=== PATIENT | male | born 1960 | race African-American/Black ===

== ENCOUNTER 2020-04-26 11:47 | Inpatient (IN) | payer MEDICAID ==
[~2020-04-26] VITALS: Ht 165.1 cm; Wt 89.8 kg
[~2020-04-26 11:47] MED LIST: DIAZ10TA PO; GABA-532 PO; HYDR-4009 PO
[2020-04-26] MEDS ORDERED: ACETAMINOPHEN WITH CODEINE 300/30MG TABLET PO ONE (22:30)
[2020-04-26] MEDS ORDERED: ONDANSETRON HCL 4MG/2ML INJ IV STA (23:16)
[2020-04-26] MEDS ORDERED: MORPHINE SULFATE 4 MG/ML CPJ (NOT FOR IM USE) IV STA (23:16)
[2020-04-26] MEDS ORDERED: PIPERACILLIN/TAZOBACTAM 3.375GM/50ML PREMIX IV SCH (23:30)
[2020-04-26] MEDS ORDERED: VANCOMYCIN 1 G PREMIX 200 ML IV SCH (23:30)
[2020-04-27 00:03] LABS: CHLORIDE 96 mEq/L (98-107)
[2020-04-27 00:06] LABS: HEMATOCRIT. 24.3 % (42.0-52.0); HEMOGLOBIN. 8.1 g/dL (14.0-18.0); MEAN CORPUSCULAR HEMOGLOBIN 29.6 pg (28.0-32.0); MEAN CORPUSCULAR VOLUME 88.8 fL (80.0-94.0); MEAN PLATELET VOLUME 9.1 fl (7.4-10.4); PLATELET 492 x1000/uL (130-400); RED BLOOD CELL COUNT 2.74 mill/uL (4.7-6.1); RED CELL DISTRIBUTION WIDTH 15.8 % (11.6-14.6)
[2020-04-27] MEDS ORDERED: DEXTROSE 50% WATER 50ML SYRINGE IV ONE (00:30)
[2020-04-27] MEDS ORDERED: INSULIN REGULAR (HUMULIN R) 300UNITS/3ML VIAL IV ONE (00:30)
[2020-04-27] MEDS ORDERED: CLINDAMYCIN 600 MG in DEXTROSE 5% WATER 50 ML IV ONE (00:30)
[2020-04-27] MEDS ORDERED: SODIUM POLYSTYRENE SULFONATE 15 G/60 ML BOT PO ONE (00:30)
[2020-04-27 00:58] LABS: PHOSPHORUS 5.1 mg/dL (2.5-4.9)
[2020-04-27] MEDS ORDERED: CLINDAMYCIN 600MG PREMIX 50 ML IV SCH (01:15)
[2020-04-27 02:27] LABS: NUCLEATED RED BLOOD CELLS 3 /100 WBC; PLATELET ESTIMATE NORMAL
[2020-04-27] MEDS ORDERED: SODIUM CHLORIDE 0.9% 1,000 ML IV ONE ×2 (03:15→03:30)
[2020-04-27 03:54] LABS: BG BASE EXCESS -6.5 mmol/L (-2.0-2.0); BG CARBOXYHEMOGLOBIN 1.3 % (0.5-1.5); BG DEOXYHEMOGLOBIN 3.6 % (0.0-5.0); BG FRACTION INSPIRED OXYGEN 100; BG HCO3 ACT 17.7 mmol/L (22.0-26.0); BG OXYGEN SATURATION 96.4 % (92.0-98.5); BG OXYHEMOGLOBIN 95.1 % (94.0-97.0); BG PH 7.389 (7.350-7.450); BG SAMPLE SITE LEFT RADIAL; BG TOTAL HEMOGLOBIN 7.6 g/dL (12.0-18.0); BG VENT MODE MASK - NRB
[2020-04-27] MEDS ORDERED: ONDANSETRON HCL 4MG/2ML INJ IV PRN (09:00)
[2020-04-27] MEDS ORDERED: DEXTROSE 50% WATER 50ML SYRINGE IV PRN (09:00)
[2020-04-27] MEDS: BLOOD SUGAR DIAGNOSTIC STRIP TEST SCH ×4 (09:00→21:50)
[2020-04-27] MEDS ORDERED: PIPERACILLIN/TAZOBACTAM 3.375 G in DEXT 5% WATER 100 ML IV SCH (09:00)
[2020-04-27] MEDS ORDERED: VANCOMYCIN 1 G PREMIX 200 ML IV SCH (11:00)
[2020-04-27] MEDS: PIPERACILLIN/TAZOBACTAM 2.25 G in DEXTROSE 5% WATER 50 ML IV SCH ×2 (12:17→21:42)
[2020-04-27] MEDS: INSULIN LISPRO 100 UNITS/ML SUBCUT SCH ×3 (13:12→21:50)
[2020-04-27 13:20] LABS: MEAN CORPUSCULAR HEMOGLOBIN 29.6 pg (28.0-32.0); MEAN CORPUSCULAR VOLUME 88.8 fL (80.0-94.0); MEAN PLATELET VOLUME 8.5 fl (7.4-10.4); PLATELET 378 x1000/uL (130-400); RED BLOOD CELL COUNT 2.24 mill/uL (4.7-6.1); RED CELL DISTRIBUTION WIDTH 15.9 % (11.6-14.6)
[2020-04-27 13:28] LABS: HEMATOCRIT. 19.9 % (42.0-52.0); HEMOGLOBIN. 6.6 g/dL (14.0-18.0)
[2020-04-27] MEDS ORDERED: TRAMADOL 50MG TABLET PO PRN (13:45)
[2020-04-27 14:23] LABS: NUCLEATED RED BLOOD CELLS 1 /100 WBC; PLATELET ESTIMATE NORMAL
[2020-04-27] MEDS ORDERED: CLINDAMYCIN 600MG PREMIX 50 ML IV NR (16:00)
[2020-04-27 18:29] LABS: CLARITY URINE TURBID (CLEAR); COLOR URINE ORANGE (YELLOW); KETONES URINE NEGATIVE (NEGATIVE); LEUKOCYTE ESTERASE URINE 1+ (NEGATIVE); NITRITE URINE NEGATIVE (NEGATIVE); OCCULT BLOOD URINE 3+ (NEGATIVE); PROTEIN URINE 4+ (NEGATIVE); SPECIFIC GRAVITY URINE 1.013 (1.005-1.030)
[2020-04-27 18:44] LABS: *COCAINE SCREEN URINE PRESUMTIVE POSITIVE (NEGATIVE)
[2020-04-27 18:45] LABS: *AMPHETAMINES SCREEN URINE NEGATIVE (NEGATIVE); *BARBITURATES SCREEN URINE NEGATIVE (NEGATIVE); *BENZODIAZEPINES SCREEN URINE NEGATIVE (NEGATIVE); CANNABINOID URINE SCREEN NEGATIVE (NEGATIVE); METHADONE URINE SCREEN NEGATIVE (NEGATIVE); OPIATES URINE SCREEN NEGATIVE (NEGATIVE); PHENCYCLIDINE URINE SCREEN NEGATIVE (NEGATIVE)
[2020-04-27] MEDS ORDERED: SODIUM POLYSTYRENE SULFONATE 15 G/60 ML BOT PO NR (19:00)
[2020-04-27] MEDS: SODIUM CHLORIDE 0.9% 1,000 ML IV SCH (19:13)
[2020-04-28] MEDS: SODIUM CHLORIDE 0.9% 1,000 ML IV SCH ×2 (05:00→16:40)
[2020-04-28] MEDS: PIPERACILLIN/TAZOBACTAM 2.25 G in DEXTROSE 5% WATER 50 ML IV SCH ×3 (05:38→18:58)
[2020-04-28] MEDS: BLOOD SUGAR DIAGNOSTIC STRIP TEST SCH (07:20)
[2020-04-28] MEDS: INSULIN LISPRO 100 UNITS/ML SUBCUT SCH (07:50)
[2020-04-28 08:28] VITALS: BP 108/59
[2020-04-28 10:01] VITALS: BP 108/59
[2020-04-28 12:14] VITALS: BP 130/63
[2020-04-28] MEDS ORDERED: LEVOFLOXACIN 250MG PREMIX 50 ML IV SCH (14:00)
[2020-04-28 16:18] VITALS: BP 116/62
[2020-04-28 16:53] LABS: HEMATOCRIT 21.7 % (42.0-52.0); HEMOGLOBIN 7.4 g/dL (14.0-18.0)
[2020-04-28 17:34] LABS: FOLIC ACID (FOLATE) SERUM 15.9 ng/mL (>5.38)
[2020-04-28 17:38] LABS: HEPATITIS B SURFACE ANTIGEN NEGATIVE
[2020-04-28 18:06] LABS: HEPATITIS A AB IGM NEGATIVE (NEGATIVE)
[2020-04-28 20:00] VITALS: BP_SYST 133; BP_SYST 139; BP_DIAS 53; BP_DIAS 75
[2020-04-28] MEDS ORDERED: SODIUM POLYSTYRENE SULFONATE 15 G/60 ML BOT PO NR (21:00)
[2020-04-29] VITALS: BP 128/64
[2020-04-29 04:00] VITALS: BP 127/64
[2020-04-29] MEDS: SODIUM CHLORIDE 0.9% 1,000 ML IV SCH ×3 (05:29→21:00)
[2020-04-29] MEDS: PIPERACILLIN/TAZOBACTAM 2.25 G in DEXTROSE 5% WATER 50 ML IV SCH ×2 (05:30→10:41)
[2020-04-29 06:56] LABS: MEAN CORPUSCULAR VOLUME 87.1 fL (80.0-94.0); MEAN PLATELET VOLUME 8.7 fl (7.4-10.4); PLATELET 362 x1000/uL (130-400); RED BLOOD CELL COUNT 2.16 mill/uL (4.7-6.1); RED CELL DISTRIBUTION WIDTH 16.5 % (11.6-14.6)
[2020-04-29 07:50] LABS: HEMATOCRIT. 18.9 % (42.0-52.0); HEMOGLOBIN. 6.3 g/dL (14.0-18.0)
[2020-04-29 08:00] VITALS: BP 93/44
[2020-04-29] MEDS: HYDROCODONE/ACETAMINOPHEN 5/325MG TABLET PO PRN (10:59)
[2020-04-29 12:00] VITALS: BP 103/56
[2020-04-29] MEDS ORDERED: CEFTRIAXONE 2 G PREMIX 50 ML IV SCH (13:00)
[2020-04-29] MEDS: CEFTRIAXONE 2 G in DEXTROSE 5% WATER 50 ML IV SCH (13:15)
[2020-04-29] MEDS ORDERED: CEFTRIAXONE 1,000 MG in DEXTROSE 5% WATER 50 ML IV SCH (14:00)
[2020-04-29 16:00] VITALS: BP 96/58
[2020-04-29 17:25] LABS: PLATELET ESTIMATE NORMAL
[2020-04-29 20:00] VITALS: BP 123/58
[2020-04-29] MEDS ORDERED: VANCOMYCIN 750 MG PREMIX 150 ML IV SCH (21:00)
[2020-04-30] VITALS (10 sets, daily range): BP systolic 100–145; BP diastolic 45–79
[2020-04-30] MEDS ORDERED: HEPARIN 1000 UNITS/ML 10ML ONE ×2 (07:51→12:26)
[2020-04-30] MEDS ORDERED: LIDOCAINE HCL 1% 20ML VIAL (Pyxis) INJ ONE ×2 (07:51→12:25)
[2020-04-30] MEDS: SODIUM CHLORIDE 0.9% 1,000 ML IV SCH ×2 (08:30→17:00)
[2020-04-30] MEDS: CEFTRIAXONE 2 G in DEXTROSE 5% WATER 50 ML IV SCH (13:49)
[2020-04-30] MEDS: ACETAMINOPHEN 325MG TABLET PO PRN (16:57)
[2020-05-01] VITALS (9 sets, daily range): BP systolic 109–148; BP diastolic 49–84
[2020-05-01] MEDS: SODIUM CHLORIDE 0.9% 1,000 ML IV SCH ×3 (00:12→21:01)
[2020-05-01] MEDS: HYDROCODONE/ACETAMINOPHEN 5/325MG TABLET PO PRN ×2 (00:23→10:31)
[2020-05-01 00:34] LABS: INR 1.1; PARTIAL THROMBOPLASTIN TIME 23.9 sec (23.4-31.0)
[2020-05-01 00:54] LABS: FIBRINOGEN > 900 mg/dL (200-400)
[2020-05-01] MEDS: ACETAMINOPHEN 325MG TABLET PO PRN (02:09)
[2020-05-01] MEDS ORDERED: SODIUM BICARBONATE 4% (2.4MEQ) 5ML VIAL IV ONE (09:01)
[2020-05-01] MEDS ORDERED: LIDOCAINE HCL 1% 20ML VIAL (Pyxis) INJ ONE (09:02)
[2020-05-01] MEDS ORDERED: HEPARIN 1000 UNITS/ML 10ML ONE (09:02)
[2020-05-01] MEDS: CEFTRIAXONE 2 G in DEXTROSE 5% WATER 50 ML IV SCH (13:08)
[2020-05-01] MEDS ORDERED: LIDOCAINE HCL/EPINEPHRINE 1%-EPI 1:100,000 20 ML VIAL INFIL NR (16:00)
[2020-05-01 16:23] LABS: MEAN CORPUSCULAR HEMOGLOBIN 29.4 pg (28.0-32.0); MEAN CORPUSCULAR VOLUME 87.9 fL (80.0-94.0); MEAN PLATELET VOLUME 8.1 fl (7.4-10.4); PLATELET 349 x1000/uL (130-400); RED BLOOD CELL COUNT 2.39 mill/uL (4.7-6.1); RED CELL DISTRIBUTION WIDTH 16.4 % (11.6-14.6)
[2020-05-01 16:52] LABS: PLATELET ESTIMATE NORMAL
[2020-05-01] MEDS ORDERED: VANCOMYCIN 1 G PREMIX 200 ML IV SCH ×2 (17:00→21:00)
[2020-05-01] MEDS: SODIUM HYPOCHLORITE 0.125% 473ML SOLUTION TOP SCH (17:47)
[2020-05-02] VITALS (7 sets, daily range): BP systolic 101–141; BP diastolic 46–78
[2020-05-02 06:46] LABS: HEMATOCRIT. 25.2 % (42.0-52.0); HEMOGLOBIN. 8.7 g/dL (14.0-18.0); MEAN CORPUSCULAR HEMOGLOBIN 29.9 pg (28.0-32.0); MEAN CORPUSCULAR VOLUME 87.2 fL (80.0-94.0); MEAN PLATELET VOLUME 8.5 fl (7.4-10.4); PLATELET 328 x1000/uL (130-400); RED BLOOD CELL COUNT 2.89 mill/uL (4.7-6.1)
[2020-05-02] MEDS: SODIUM CHLORIDE 0.9% 1,000 ML IV SCH (09:08)
[2020-05-02] MEDS: SODIUM HYPOCHLORITE 0.125% 473ML SOLUTION TOP SCH (09:09)
[2020-05-02 09:33] LABS: HEMATOCRIT 25.1 % (42.0-52.0); HEMOGLOBIN 8.6 g/dL (14.0-18.0)
[2020-05-02] MEDS: CEFTRIAXONE 2 G in DEXTROSE 5% WATER 50 ML IV SCH (12:47)
[2020-05-02] MEDS: HYDROCODONE/ACETAMINOPHEN 5/325MG TABLET PO PRN (13:15)
[2020-05-02 20:48] LABS: PLATELET ESTIMATE NORMAL
[2020-05-03] VITALS: BP 152/77
[2020-05-03 04:00] VITALS: BP 109/58
[2020-05-03 07:18] LABS: HEMATOCRIT. 24.5 % (42.0-52.0); MEAN CORPUSCULAR HEMOGLOBIN 29.3 pg (28.0-32.0); MEAN CORPUSCULAR VOLUME 89.2 fL (80.0-94.0); MEAN PLATELET VOLUME 8.4 fl (7.4-10.4); PLATELET 285 x1000/uL (130-400); RED BLOOD CELL COUNT 2.75 mill/uL (4.7-6.1)
[2020-05-03 07:55] LABS: PHOSPHORUS 8.9 mg/dL (2.5-4.9)
[2020-05-03 08:00] VITALS: BP 118/54
[2020-05-03] MEDS: SODIUM HYPOCHLORITE 0.125% 473ML SOLUTION TOP SCH (09:00)
[2020-05-03 11:58] VITALS: BP 136/79
[2020-05-03] MEDS: CALCIUM ACETATE 667MG CAPSULE PO SCH ×2 (12:25→17:50)
[2020-05-03] MEDS ORDERED: HYDROCODONE/ACETAMINOPHEN 5/325MG TABLET PO PRN (13:15)
[2020-05-03 16:00] VITALS: BP 124/70
[2020-05-03 20:50] VITALS: BP 124/59
[2020-05-03 21:32] LABS: PLATELET ESTIMATE NORMAL
[2020-05-03] MEDS: HYDROCODONE/ACETAMINOPHEN 5/325MG TABLET PO PRN (21:34)
[2020-05-04 00:46] VITALS: BP 117/57
[2020-05-04 04:00] VITALS: BP 124/64
[2020-05-04] MEDS: HYDROCODONE/ACETAMINOPHEN 5/325MG TABLET PO PRN ×3 (06:43→23:54)
[2020-05-04 08:00] VITALS: BP 118/68
[2020-05-04] MEDS: CALCIUM ACETATE 667MG CAPSULE PO SCH ×2 (08:30→19:09)
[2020-05-04 09:08] LABS: ANTI-NUCLEAR ANTIBODIES DIRECT Positive (Negative)
[2020-05-04 12:22] VITALS: BP 144/68
[2020-05-04] MEDS ORDERED: VANCOMYCIN 750 MG PREMIX 150 ML IV NR (14:00)
[2020-05-04 16:15] VITALS: BP 118/68
[2020-05-04 18:16] LABS: BASOPHILS % 0.6 % (0.0-2.0); EOSINOPHILS % 1.2 % (0.0-5.0); HEMATOCRIT. 21.3 % (42.0-52.0); LYMPHOCYTES % 7.6 % (20.0-50.0); MEAN CORPUSCULAR HEMOGLOBIN 29.3 pg (28.0-32.0); MEAN CORPUSCULAR VOLUME 89.2 fL (80.0-94.0); MEAN PLATELET VOLUME 8.2 fl (7.4-10.4); MONOCYTES % 8.6 % (2.0-8.0); PLATELET 285 x1000/uL (130-400); RED BLOOD CELL COUNT 2.39 mill/uL (4.7-6.1); RED CELL DISTRIBUTION WIDTH 16.3 % (11.6-14.6)
[2020-05-04] MEDS: SODIUM HYPOCHLORITE 0.125% 473ML SOLUTION TOP SCH (18:17)
[2020-05-04] MEDS: CEFTRIAXONE 2 G in DEXTROSE 5% WATER 50 ML IV SCH (19:09)
[2020-05-04 20:00] VITALS: BP 126/71
[2020-05-05] VITALS (8 sets, daily range): BP systolic 104–142; BP diastolic 62–85
[2020-05-05 09:32] LABS: BASOPHILS % 0.7 % (0.0-2.0); EOSINOPHILS % 1.2 % (0.0-5.0); HEMATOCRIT. 24.8 % (42.0-52.0); HEMOGLOBIN. 8.3 g/dL (14.0-18.0); LYMPHOCYTES % 7.5 % (20.0-50.0); MEAN CORPUSCULAR HEMOGLOBIN 29.9 pg (28.0-32.0); MEAN CORPUSCULAR VOLUME 89.1 fL (80.0-94.0); MEAN PLATELET VOLUME 8.1 fl (7.4-10.4); MONOCYTES % 9.4 % (2.0-8.0); NEUTROPHILS % 81.2 % (40.0-76.0); PLATELET 284 x1000/uL (130-400); RED BLOOD CELL COUNT 2.78 mill/uL (4.7-6.1); RED CELL DISTRIBUTION WIDTH 15.8 % (11.6-14.6)
[2020-05-05] MEDS: SODIUM HYPOCHLORITE 0.125% 473ML SOLUTION TOP SCH (10:19)
[2020-05-05] MEDS: CEFTRIAXONE 2 G in DEXTROSE 5% WATER 50 ML IV SCH ×2 (14:05→14:09)
[2020-05-05] MEDS: CALCIUM ACETATE 667MG CAPSULE PO SCH ×2 (14:08→18:00)
[2020-05-05] MEDS: HYDROCODONE/ACETAMINOPHEN 5/325MG TABLET PO PRN (14:16)
[2020-05-05] MEDS: ACETAMINOPHEN 325MG TABLET PO PRN ×2 (14:18→22:00)
[2020-05-06] VITALS: BP 103/69
[2020-05-06] MEDS: HYDROCODONE/ACETAMINOPHEN 5/325MG TABLET PO PRN (01:10)
[2020-05-06 04:00] VITALS: BP 137/89
[2020-05-06 08:00] VITALS: BP 117/74
[2020-05-06] MEDS: SODIUM HYPOCHLORITE 0.125% 473ML SOLUTION TOP SCH (09:00)
[2020-05-06 10:30] LABS: BASOPHILS % 0.7 % (0.0-2.0); EOSINOPHILS % 1.4 % (0.0-5.0); HEMATOCRIT. 26.1 % (42.0-52.0); HEMOGLOBIN. 8.6 g/dL (14.0-18.0); LYMPHOCYTES % 11.3 % (20.0-50.0); MEAN CORPUSCULAR HEMOGLOBIN 30.2 pg (28.0-32.0); MEAN CORPUSCULAR VOLUME 91.2 fL (80.0-94.0); MEAN PLATELET VOLUME 8.1 fl (7.4-10.4); NEUTROPHILS % 76.6 % (40.0-76.0); PLATELET 300 x1000/uL (130-400); RED BLOOD CELL COUNT 2.86 mill/uL (4.7-6.1); RED CELL DISTRIBUTION WIDTH 15.6 % (11.6-14.6)
[2020-05-06 12:00] VITALS: BP 132/74
[2020-05-06] MEDS ORDERED: VANCOMYCIN 500 MG PREMIX 100 ML IV SCH (12:00)
[2020-05-06 16:00] VITALS: BP 148/71
[2020-05-06 20:00] VITALS: BP 123/68
[2020-05-06] MEDS ORDERED: CEFTRIAXONE 2 G in DEXTROSE 5% WATER 50 ML IV SCH (20:00)
[2020-05-06] MEDS: ACETAMINOPHEN 325MG TABLET PO PRN (20:48)
[2020-05-06] MEDS: CEFTRIAXONE 2 G in DEXTROSE 5% WATER 50 ML IV SCH (23:20)
[2020-05-07] VITALS (10 sets, daily range): BP systolic 106–137; BP diastolic 52–85
[2020-05-07] MEDS: SODIUM HYPOCHLORITE 0.125% 473ML SOLUTION TOP SCH (09:57)
[2020-05-07] MEDS: CALCIUM ACETATE 667MG CAPSULE PO SCH ×2 (13:34→17:30)
[2020-05-07] MEDS: HYDROCODONE/ACETAMINOPHEN 5/325MG TABLET PO PRN ×2 (14:27→22:48)
[2020-05-07] MEDS: ACETAMINOPHEN 325MG TABLET PO PRN (14:40)
[2020-05-07 17:10] LABS: ANTI-MYELOPEROXIDASE AB < 9.0 U/mL (0.0-9.0); ANTI-PROTEINASE 3 ABS < 3.5 U/mL (0.0-3.5)
[2020-05-07 17:49] LABS: BASOPHILS % 1.1 % (0.0-2.0); EOSINOPHILS % 1.6 % (0.0-5.0); HEMATOCRIT. 22.2 % (42.0-52.0); HEMOGLOBIN. 7.4 g/dL (14.0-18.0); LYMPHOCYTES % 15.8 % (20.0-50.0); MEAN CORPUSCULAR HEMOGLOBIN 30.1 pg (28.0-32.0); MEAN CORPUSCULAR VOLUME 90.1 fL (80.0-94.0); MEAN PLATELET VOLUME 7.9 fl (7.4-10.4); MONOCYTES % 10.1 % (2.0-8.0); NEUTROPHILS % 71.4 % (40.0-76.0); PLATELET 279 x1000/uL (130-400); RED BLOOD CELL COUNT 2.46 mill/uL (4.7-6.1); RED CELL DISTRIBUTION WIDTH 15.7 % (11.6-14.6)
[2020-05-08] MEDS: CEFTRIAXONE 2 G in DEXTROSE 5% WATER 50 ML IV SCH ×2 (00:20→23:31)
[2020-05-08 03:44] VITALS: BP 130/62
[2020-05-08] MEDS: CALCIUM ACETATE 667MG CAPSULE PO SCH ×3 (06:27→18:45)
[2020-05-08 07:22] LABS: BASOPHILS % 0.7 % (0.0-2.0); EOSINOPHILS % 1.3 % (0.0-5.0); HEMATOCRIT. 24.6 % (42.0-52.0); HEMOGLOBIN. 8.3 g/dL (14.0-18.0); LYMPHOCYTES % 15.8 % (20.0-50.0); MEAN CORPUSCULAR HEMOGLOBIN 30.3 pg (28.0-32.0); MEAN CORPUSCULAR VOLUME 89.4 fL (80.0-94.0); MONOCYTES % 12.9 % (2.0-8.0); NEUTROPHILS % 69.3 % (40.0-76.0); PLATELET 260 x1000/uL (130-400); RED BLOOD CELL COUNT 2.75 mill/uL (4.7-6.1); RED CELL DISTRIBUTION WIDTH 15.8 % (11.6-14.6)
[2020-05-08 07:30] LABS: INR 1.2; PROTHROMBIN TIME 12.1 sec (9.6-11.0)
[2020-05-08 08:00] VITALS: BP 121/71
[2020-05-08 08:15] LABS: FIBRINOGEN > 900 mg/dL (200-400)
[2020-05-08] MEDS: HYDROCODONE/ACETAMINOPHEN 5/325MG TABLET PO PRN (11:22)
[2020-05-08 12:00] VITALS: BP 116/72
[2020-05-08 16:00] VITALS: BP 157/76
[2020-05-08] MEDS: SODIUM HYPOCHLORITE 0.125% 473ML SOLUTION TOP SCH (18:47)
[2020-05-08 20:00] VITALS: BP 113/67
[2020-05-08] MEDS: ACETAMINOPHEN 325MG TABLET PO PRN (22:00)
[2020-05-09] VITALS: BP 101/53
[2020-05-09 04:00] VITALS: BP 123/73
[2020-05-09] MEDS: CALCIUM ACETATE 667MG CAPSULE PO SCH ×3 (06:13→17:26)
[2020-05-09 07:22] LABS: EOSINOPHILS % 1.5 % (0.0-5.0); HEMATOCRIT. 26.8 % (42.0-52.0); HEMOGLOBIN. 8.9 g/dL (14.0-18.0); LYMPHOCYTES % 14.9 % (20.0-50.0); MEAN CORPUSCULAR HEMOGLOBIN 30.1 pg (28.0-32.0); MEAN CORPUSCULAR VOLUME 90.5 fL (80.0-94.0); MEAN PLATELET VOLUME 8.3 fl (7.4-10.4); MONOCYTES % 13.5 % (2.0-8.0); NEUTROPHILS % 69.1 % (40.0-76.0); PLATELET 299 x1000/uL (130-400); RED BLOOD CELL COUNT 2.96 mill/uL (4.7-6.1); RED CELL DISTRIBUTION WIDTH 15.8 % (11.6-14.6)
[2020-05-09 08:00] VITALS: BP 125/75
[2020-05-09] MEDS: SODIUM CHLORIDE 0.45% 1,000 ML IV SCH (09:06)
[2020-05-09] MEDS: SODIUM HYPOCHLORITE 0.125% 473ML SOLUTION TOP SCH (09:09)
[2020-05-09 12:00] VITALS: BP 122/71
[2020-05-09 13:11] LABS: ATYPICAL P-ANCA <1:20 titer (Neg:<1:20); CYTOPLASMIC C-ANCA <1:20 titer (Neg:<1:20); PERINUCLEAR P-ANCA <1:20 titer (Neg:<1:20)
[2020-05-09] MEDS: HYDROCODONE/ACETAMINOPHEN 5/325MG TABLET PO PRN (14:58)
[2020-05-09 16:00] VITALS: BP 118/74
[2020-05-09 20:00] VITALS: BP 136/73
[2020-05-09] MEDS ORDERED: LIDOCAINE HCL 1% 20ML VIAL (Pyxis) INJ INFIL NR (21:00)
[2020-05-09] MEDS ORDERED: METHYLPREDNISOLONE ACETATE 40MG/ML VIAL IM NR (21:00)
[2020-05-09] MEDS: CEFTRIAXONE 2 G in DEXTROSE 5% WATER 50 ML IV SCH (23:53)
[2020-05-10] VITALS (7 sets, daily range): BP systolic 110–147; BP diastolic 52–82
[2020-05-10] MEDS: HYDROCODONE/ACETAMINOPHEN 5/325MG TABLET PO PRN ×3 (00:59→19:54)
[2020-05-10] MEDS: SODIUM CHLORIDE 0.45% 1,000 ML IV SCH ×3 (01:00→15:14)
[2020-05-10] MEDS: CALCIUM ACETATE 667MG CAPSULE PO SCH ×3 (05:56→17:52)
[2020-05-10 06:32] LABS: EOSINOPHILS % 1.1 % (0.0-5.0); HEMOGLOBIN. 8.1 g/dL (14.0-18.0); LYMPHOCYTES % 16.4 % (20.0-50.0); MEAN CORPUSCULAR VOLUME 89.2 fL (80.0-94.0); MONOCYTES % 13.3 % (2.0-8.0); NEUTROPHILS % 68.2 % (40.0-76.0); PLATELET 289 x1000/uL (130-400); RED BLOOD CELL COUNT 2.69 mill/uL (4.7-6.1); RED CELL DISTRIBUTION WIDTH 15.4 % (11.6-14.6)
[2020-05-10 06:53] LABS: PHOSPHORUS 4.8 mg/dL (2.5-4.9)
[2020-05-10] MEDS: SODIUM HYPOCHLORITE 0.125% 473ML SOLUTION TOP SCH (12:18)
[2020-05-10 16:04] LABS: CLARITY URINE CLEAR (CLEAR); COLOR URINE YELLOW (YELLOW); KETONES URINE NEGATIVE (NEGATIVE); LEUKOCYTE ESTERASE URINE 2+ (NEGATIVE); NITRITE URINE NEGATIVE (NEGATIVE); OCCULT BLOOD URINE 3+ (NEGATIVE); PROTEIN URINE 2+ (NEGATIVE); SPECIFIC GRAVITY URINE 1.007 (1.005-1.030); UROBILINOGEN URINE 0.2 E.U./dL (0.2-1.0)
[2020-05-10] MEDS: CEFTRIAXONE 2 G in DEXTROSE 5% WATER 50 ML IV SCH (22:11)
[2020-05-11] VITALS: BP 129/67
[2020-05-11] MEDS: ACETAMINOPHEN 325MG TABLET PO PRN (00:28)
[2020-05-11] MEDS: SODIUM CHLORIDE 0.45% 1,000 ML IV SCH ×3 (01:02→22:26)
[2020-05-11 04:00] VITALS: BP 135/84
[2020-05-11] MEDS: CALCIUM ACETATE 667MG CAPSULE PO SCH ×3 (06:23→16:53)
[2020-05-11] MEDS: HYDROCODONE/ACETAMINOPHEN 5/325MG TABLET PO PRN ×3 (06:33→22:47)
[2020-05-11 08:00] VITALS: BP 125/79
[2020-05-11] MEDS: SODIUM HYPOCHLORITE 0.125% 473ML SOLUTION TOP SCH (08:50)
[2020-05-11 09:33] LABS: BASOPHILS % 0.5 % (0.0-2.0); EOSINOPHILS % 0.3 % (0.0-5.0); HEMATOCRIT. 25.1 % (42.0-52.0); HEMOGLOBIN. 8.3 g/dL (14.0-18.0); LYMPHOCYTES % 12.6 % (20.0-50.0); MEAN CORPUSCULAR HEMOGLOBIN 29.7 pg (28.0-32.0); MEAN PLATELET VOLUME 8.4 fl (7.4-10.4); MONOCYTES % 6.6 % (2.0-8.0); PLATELET 326 x1000/uL (130-400); RED BLOOD CELL COUNT 2.79 mill/uL (4.7-6.1); RED CELL DISTRIBUTION WIDTH 15.9 % (11.6-14.6)
[2020-05-11 12:00] VITALS: BP 133/63
[2020-05-11] MEDS ORDERED: DOCUSATE SODIUM 250MG CAPSULE PO PRN (13:30)
[2020-05-11 16:00] VITALS: BP 119/66
[2020-05-11 20:00] VITALS: BP 113/54
[2020-05-11] MEDS: CEFTRIAXONE 2 G in DEXTROSE 5% WATER 50 ML IV SCH (22:26)
[2020-05-12] MEDS: SODIUM CHLORIDE 0.45% 1,000 ML IV SCH ×2 (06:00→19:09)
[2020-05-12] MEDS: CALCIUM ACETATE 667MG CAPSULE PO SCH ×3 (06:00→18:10)
[2020-05-12 06:12] LABS: BASOPHILS % 0.7 % (0.0-2.0); EOSINOPHILS % 0.4 % (0.0-5.0); HEMATOCRIT. 25.3 % (42.0-52.0); HEMOGLOBIN. 8.1 g/dL (14.0-18.0); LYMPHOCYTES % 16.4 % (20.0-50.0); MEAN CORPUSCULAR HEMOGLOBIN 29.2 pg (28.0-32.0); MEAN CORPUSCULAR VOLUME 90.6 fL (80.0-94.0); MEAN PLATELET VOLUME 8.7 fl (7.4-10.4); MONOCYTES % 11.5 % (2.0-8.0); PLATELET 375 x1000/uL (130-400); RED BLOOD CELL COUNT 2.79 mill/uL (4.7-6.1); RED CELL DISTRIBUTION WIDTH 15.4 % (11.6-14.6)
[2020-05-12 07:48] VITALS: BP 136/67
[2020-05-12] MEDS: HYDROCODONE/ACETAMINOPHEN 5/325MG TABLET PO PRN ×2 (08:04→18:12)
[2020-05-12] MEDS: SODIUM HYPOCHLORITE 0.125% 473ML SOLUTION TOP SCH (09:47)
[2020-05-12] MEDS: CELECOXIB 100MG CAPSULE PO SCH ×2 (09:47→18:10)
[2020-05-12 12:00] VITALS: BP 128/70
[2020-05-12] MEDS: DIPHENHYDRAMINE 25MG CAPSULE PO PRN ×2 (15:40→22:22)
[2020-05-12 20:00] VITALS: BP 129/68
[2020-05-12] MEDS: CEFTRIAXONE 2 G in DEXTROSE 5% WATER 50 ML IV SCH (22:16)
[2020-05-12] MEDS: HYDROXYCHLOROQUINE SULFATE 200MG TABLET PO SCH (22:16)
[2020-05-13] VITALS: BP 134/75
[2020-05-13] MEDS: SODIUM CHLORIDE 0.45% 1,000 ML IV SCH ×3 (03:35→22:08)
[2020-05-13 04:00] VITALS: BP 167/89
[2020-05-13] MEDS: CALCIUM ACETATE 667MG CAPSULE PO SCH ×3 (06:05→17:52)
[2020-05-13 08:00] VITALS: BP 124/93
[2020-05-13 08:54] LABS: BASOPHILS % 1.3 % (0.0-2.0); EOSINOPHILS % 1.3 % (0.0-5.0); HEMATOCRIT. 26.1 % (42.0-52.0); HEMOGLOBIN. 8.3 g/dL (14.0-18.0); LYMPHOCYTES % 23.5 % (20.0-50.0); MEAN CORPUSCULAR HEMOGLOBIN 29.2 pg (28.0-32.0); MEAN CORPUSCULAR VOLUME 91.3 fL (80.0-94.0); MEAN PLATELET VOLUME 8.7 fl (7.4-10.4); MONOCYTES % 12.8 % (2.0-8.0); NEUTROPHILS % 61.1 % (40.0-76.0); PLATELET 420 x1000/uL (130-400); RED BLOOD CELL COUNT 2.86 mill/uL (4.7-6.1); RED CELL DISTRIBUTION WIDTH 15.4 % (11.6-14.6)
[2020-05-13] MEDS: DIPHENHYDRAMINE 25MG CAPSULE PO PRN ×2 (09:06→22:22)
[2020-05-13] MEDS: SODIUM HYPOCHLORITE 0.125% 473ML SOLUTION TOP SCH (09:06)
[2020-05-13] MEDS: HYDROXYCHLOROQUINE SULFATE 200MG TABLET PO SCH ×2 (09:06→17:52)
[2020-05-13] MEDS: CELECOXIB 100MG CAPSULE PO SCH ×2 (09:06→17:52)
[2020-05-13] MEDS: HYDROCODONE/ACETAMINOPHEN 5/325MG TABLET PO PRN ×2 (09:07→22:24)
[2020-05-13 09:08] LABS: CHLORIDE 111 mEq/L (98-107)
[2020-05-13 11:52] VITALS: BP 139/68
[2020-05-13 20:00] VITALS: BP 102/67
[2020-05-13] MEDS: CEFTRIAXONE 2 G in DEXTROSE 5% WATER 50 ML IV SCH (22:08)
[2020-05-14] VITALS: BP 141/70
[2020-05-14 04:00] VITALS: BP 149/82
[2020-05-14] MEDS: CALCIUM ACETATE 667MG CAPSULE PO SCH ×3 (06:18→16:48)
[2020-05-14 08:02] VITALS: BP 128/57
[2020-05-14] MEDS: CELECOXIB 100MG CAPSULE PO SCH ×2 (08:17→16:48)
[2020-05-14] MEDS: HYDROXYCHLOROQUINE SULFATE 200MG TABLET PO SCH ×2 (08:17→16:48)
[2020-05-14] MEDS: SODIUM CHLORIDE 0.45% 1,000 ML IV SCH (08:23)
[2020-05-14 09:07] LABS: ANA IFA Negative (.)
[2020-05-14 09:07] LABS: G6PD RBC 2.83 x10E6/uL (4.14-5.80)
[2020-05-14] MEDS: SODIUM HYPOCHLORITE 0.125% 473ML SOLUTION TOP SCH (09:20)
[2020-05-14] MEDS: DIPHENHYDRAMINE 25MG CAPSULE PO PRN ×2 (09:40→22:16)
[2020-05-14] MEDS: HYDROCODONE/ACETAMINOPHEN 5/325MG TABLET PO PRN ×2 (09:41→22:30)
[2020-05-14 12:00] VITALS: BP 145/59
[2020-05-14 16:00] VITALS: BP 123/69
[2020-05-14 20:00] VITALS: BP 112/76
[2020-05-14] MEDS: CEFTRIAXONE 2 G in DEXTROSE 5% WATER 50 ML IV SCH (22:17)
[2020-05-15] VITALS: BP 133/73
[2020-05-15 04:00] VITALS: BP 120/75
[2020-05-15] MEDS: CALCIUM ACETATE 667MG CAPSULE PO SCH ×3 (06:12→17:32)
[2020-05-15 07:34] LABS: CHLORIDE 109 mEq/L (98-107)
[2020-05-15 08:00] LABS: EOSINOPHILS % 1.5 % (0.0-5.0); HEMATOCRIT. 26.7 % (42.0-52.0); HEMOGLOBIN. 8.5 g/dL (14.0-18.0); LYMPHOCYTES % 22.3 % (20.0-50.0); MEAN CORPUSCULAR HEMOGLOBIN 28.9 pg (28.0-32.0); MEAN CORPUSCULAR VOLUME 90.9 fL (80.0-94.0); MEAN PLATELET VOLUME 8.1 fl (7.4-10.4); MONOCYTES % 13.4 % (2.0-8.0); NEUTROPHILS % 61.8 % (40.0-76.0); PLATELET 479 x1000/uL (130-400); RED BLOOD CELL COUNT 2.93 mill/uL (4.7-6.1); RED CELL DISTRIBUTION WIDTH 15.7 % (11.6-14.6)
[2020-05-15 08:18] VITALS: BP 159/70
[2020-05-15] MEDS: CELECOXIB 100MG CAPSULE PO SCH ×2 (09:08→17:32)
[2020-05-15] MEDS: HYDROXYCHLOROQUINE SULFATE 200MG TABLET PO SCH ×2 (09:08→17:32)
[2020-05-15] MEDS: SODIUM HYPOCHLORITE 0.125% 473ML SOLUTION TOP SCH (09:09)
[2020-05-15 09:10] LABS: ALDOLASE 6.8 U/L (3.3-10.3)
[2020-05-15] MEDS: HYDROCODONE/ACETAMINOPHEN 5/325MG TABLET PO PRN (11:59)
[2020-05-15 12:04] VITALS: BP 130/89
[2020-05-15 14:07] LABS: RNP ANTIBODY 2.5 AI (0.0-0.9); SMITH ANTIBODY < 0.2 AI (0.0-0.9)
[2020-05-15] MEDS: DIPHENHYDRAMINE 25MG CAPSULE PO PRN ×2 (14:14→23:31)
[2020-05-15 15:09] LABS: ANTI-DNA DOUBLE STRANDED QUANT < 1 IU/mL (0-9)
[2020-05-15 16:10] VITALS: BP 116/58
[2020-05-15 20:00] VITALS: BP 137/76
[2020-05-15] MEDS: CEFTRIAXONE 2 G in DEXTROSE 5% WATER 50 ML IV SCH (23:20)
[2020-05-16] VITALS: BP_SYST 102; BP_SYST 144; BP_DIAS 62; BP_DIAS 78
[2020-05-16 04:00] VITALS: BP 144/90
[2020-05-16 04:07] LABS: CYC CITRULLINATED PEP IgG/IgA 10 units (0-19)
[2020-05-16] MEDS: CALCIUM ACETATE 667MG CAPSULE PO SCH ×3 (06:00→17:05)
[2020-05-16 08:00] VITALS: BP 146/86
[2020-05-16] MEDS: HYDROXYCHLOROQUINE SULFATE 200MG TABLET PO SCH ×2 (09:29→17:05)
[2020-05-16] MEDS: CELECOXIB 100MG CAPSULE PO SCH ×2 (09:29→17:05)
[2020-05-16] MEDS: SODIUM HYPOCHLORITE 0.125% 473ML SOLUTION TOP SCH (09:30)
[2020-05-16] MEDS: HYDROCODONE/ACETAMINOPHEN 5/325MG TABLET PO PRN ×3 (10:36→23:25)
[2020-05-16] MEDS ORDERED: HYDROCODONE/ACETAMINOPHEN 5/325MG TABLET PO NR (12:00)
[2020-05-16 12:57] LABS: BASOPHILS % 0.9 % (0.0-2.0); EOSINOPHILS % 1.4 % (0.0-5.0); HEMATOCRIT. 27.3 % (42.0-52.0); HEMOGLOBIN. 8.9 g/dL (14.0-18.0); LYMPHOCYTES % 22.4 % (20.0-50.0); MEAN CORPUSCULAR HEMOGLOBIN 29.3 pg (28.0-32.0); MEAN PLATELET VOLUME 8.2 fl (7.4-10.4); MONOCYTES % 12.6 % (2.0-8.0); NEUTROPHILS % 62.7 % (40.0-76.0); PLATELET 515 x1000/uL (130-400); RED BLOOD CELL COUNT 3.04 mill/uL (4.7-6.1); RED CELL DISTRIBUTION WIDTH 15.9 % (11.6-14.6)
[2020-05-16 13:01] LABS: CHLORIDE 108 mEq/L (98-107)
[2020-05-16 16:00] VITALS: BP 129/74
[2020-05-16] MEDS: DIPHENHYDRAMINE 25MG CAPSULE PO PRN (17:09)
[2020-05-16 20:00] VITALS: BP 128/62
[2020-05-16] MEDS: CEFTRIAXONE 2 G in DEXTROSE 5% WATER 50 ML IV SCH (23:09)
[2020-05-17] VITALS: BP 112/42
[2020-05-17 04:00] VITALS: BP 150/71
[2020-05-17] MEDS: CALCIUM ACETATE 667MG CAPSULE PO SCH ×3 (06:11→17:10)
[2020-05-17 08:00] VITALS: BP 136/70
[2020-05-17] MEDS: HYDROXYCHLOROQUINE SULFATE 200MG TABLET PO SCH ×2 (09:31→17:10)
[2020-05-17] MEDS: CELECOXIB 100MG CAPSULE PO SCH ×2 (09:31→17:10)
[2020-05-17] MEDS: SODIUM HYPOCHLORITE 0.125% 473ML SOLUTION TOP SCH (09:34)
[2020-05-17 12:00] VITALS: BP 130/72
[2020-05-17] MEDS: GABAPENTIN 300MG CAPSULE PO SCH ×2 (13:38→21:37)
[2020-05-17 16:00] VITALS: BP 134/75
[2020-05-17] MEDS: HYDROCODONE/ACETAMINOPHEN 5/325MG TABLET PO PRN (21:54)
[2020-05-18] VITALS: BP 134/75
[2020-05-18 04:00] VITALS: BP 131/77
[2020-05-18] MEDS: GABAPENTIN 300MG CAPSULE PO SCH ×3 (06:49→21:21)
[2020-05-18] MEDS: CALCIUM ACETATE 667MG CAPSULE PO SCH ×3 (06:49→17:16)
[2020-05-18 08:00] VITALS: BP 130/65
[2020-05-18] MEDS: HYDROCODONE/ACETAMINOPHEN 5/325MG TABLET PO PRN ×2 (08:16→14:27)
[2020-05-18] MEDS: CELECOXIB 100MG CAPSULE PO SCH ×2 (08:17→17:16)
[2020-05-18] MEDS: HYDROXYCHLOROQUINE SULFATE 200MG TABLET PO SCH ×2 (08:17→17:16)
[2020-05-18] MEDS: SODIUM HYPOCHLORITE 0.125% 473ML SOLUTION TOP SCH (08:19)
[2020-05-18 12:00] VITALS: BP 107/72
[2020-05-18 16:00] VITALS: BP 112/70
[2020-05-18 20:00] VITALS: BP 129/69
[2020-05-18] MEDS: ZOLPIDEM TARTRATE 5MG TABLET PO PRN (21:21)
[2020-05-19] VITALS: BP 131/75
[2020-05-19 04:00] VITALS: BP 121/71
[2020-05-19] MEDS: GABAPENTIN 300MG CAPSULE PO SCH ×3 (06:12→21:24)
[2020-05-19 08:00] VITALS: BP 119/87
[2020-05-19] MEDS: HYDROXYCHLOROQUINE SULFATE 200MG TABLET PO SCH ×2 (09:34→17:42)
[2020-05-19] MEDS: CELECOXIB 100MG CAPSULE PO SCH ×2 (09:34→17:42)
[2020-05-19] MEDS: HYDROCODONE/ACETAMINOPHEN 5/325MG TABLET PO PRN ×2 (09:34→17:58)
[2020-05-19] MEDS: DIPHENHYDRAMINE 25MG CAPSULE PO PRN (09:34)
[2020-05-19] MEDS: CALCIUM ACETATE 667MG CAPSULE PO SCH ×3 (09:34→17:42)
[2020-05-19] MEDS: SODIUM HYPOCHLORITE 0.125% 473ML SOLUTION TOP SCH (09:35)
[2020-05-19 11:53] VITALS: BP 127/69
[2020-05-19 15:58] VITALS: BP 113/67
[2020-05-19 20:00] VITALS: BP 105/59
[2020-05-19] MEDS: ZOLPIDEM TARTRATE 5MG TABLET PO PRN (21:24)
[2020-05-20] VITALS: BP 126/66
[2020-05-20 04:00] VITALS: BP 130/60
[2020-05-20] MEDS: GABAPENTIN 300MG CAPSULE PO SCH ×3 (06:10→21:28)
[2020-05-20 07:30] LABS: CHLORIDE 107 mEq/L (98-107)
[2020-05-20 07:41] LABS: BASOPHILS % 0.7 % (0.0-2.0); EOSINOPHILS % 1.2 % (0.0-5.0); HEMATOCRIT. 28.9 % (42.0-52.0); HEMOGLOBIN. 9.3 g/dL (14.0-18.0); LYMPHOCYTES % 18.6 % (20.0-50.0); MEAN CORPUSCULAR HEMOGLOBIN 29.2 pg (28.0-32.0); MEAN PLATELET VOLUME 8.4 fl (7.4-10.4); MONOCYTES % 10.4 % (2.0-8.0); NEUTROPHILS % 69.1 % (40.0-76.0); PLATELET 527 x1000/uL (130-400); RED BLOOD CELL COUNT 3.18 mill/uL (4.7-6.1)
[2020-05-20 08:00] VITALS: BP 140/77
[2020-05-20] MEDS: CALCIUM ACETATE 667MG CAPSULE PO SCH ×3 (08:38→16:39)
[2020-05-20] MEDS: HYDROXYCHLOROQUINE SULFATE 200MG TABLET PO SCH ×2 (08:38→16:40)
[2020-05-20] MEDS: CELECOXIB 100MG CAPSULE PO SCH ×2 (08:38→16:39)
[2020-05-20] MEDS: SODIUM HYPOCHLORITE 0.125% 473ML SOLUTION TOP SCH (08:38)
[2020-05-20] MEDS: HYDROCODONE/ACETAMINOPHEN 5/325MG TABLET PO PRN ×2 (08:55→13:36)
[2020-05-20 12:00] VITALS: BP 125/68
[2020-05-20 16:00] VITALS: BP 130/78
[2020-05-20 16:05] LABS: CLARITY URINE CLEAR (CLEAR); COLOR URINE ORANGE (YELLOW); KETONES URINE NEGATIVE (NEGATIVE); LEUKOCYTE ESTERASE URINE 2+ (NEGATIVE); NITRITE URINE NEGATIVE (NEGATIVE); OCCULT BLOOD URINE 3+ (NEGATIVE); PROTEIN URINE 1+ (NEGATIVE); SPECIFIC GRAVITY URINE 1.013 (1.005-1.030); UROBILINOGEN URINE 0.2 E.U./dL (0.2-1.0)
[2020-05-20 20:00] VITALS: BP 131/72
[2020-05-20] MEDS: ZOLPIDEM TARTRATE 5MG TABLET PO PRN (21:28)
[2020-05-21] VITALS: BP 123/68
[2020-05-21 04:00] VITALS: BP 129/64
[2020-05-21] MEDS: GABAPENTIN 300MG CAPSULE PO SCH ×3 (06:07→21:02)
[2020-05-21] MEDS: HYDROCODONE/ACETAMINOPHEN 5/325MG TABLET PO PRN (06:08)
[2020-05-21 07:05] LABS: BASOPHILS % 0.5 % (0.0-2.0); EOSINOPHILS % 1.1 % (0.0-5.0); HEMATOCRIT. 27.4 % (42.0-52.0); HEMOGLOBIN. 8.9 g/dL (14.0-18.0); LYMPHOCYTES % 22.4 % (20.0-50.0); MEAN CORPUSCULAR HEMOGLOBIN 29.1 pg (28.0-32.0); MEAN CORPUSCULAR VOLUME 89.8 fL (80.0-94.0); MEAN PLATELET VOLUME 8.1 fl (7.4-10.4); MONOCYTES % 12.9 % (2.0-8.0); NEUTROPHILS % 63.1 % (40.0-76.0); PLATELET 467 x1000/uL (130-400); RED BLOOD CELL COUNT 3.05 mill/uL (4.7-6.1); RED CELL DISTRIBUTION WIDTH 16.2 % (11.6-14.6)
[2020-05-21 07:20] LABS: CHLORIDE 110 mEq/L (98-107)
[2020-05-21 08:00] VITALS: BP 127/76
[2020-05-21] MEDS: CALCIUM ACETATE 667MG CAPSULE PO SCH ×3 (09:28→17:30)
[2020-05-21] MEDS: CELECOXIB 100MG CAPSULE PO SCH ×2 (09:29→17:00)
[2020-05-21] MEDS: HYDROXYCHLOROQUINE SULFATE 200MG TABLET PO SCH ×2 (09:29→17:00)
[2020-05-21] MEDS: DIPHENHYDRAMINE 25MG CAPSULE PO PRN (09:29)
[2020-05-21] MEDS: SODIUM HYPOCHLORITE 0.125% 473ML SOLUTION TOP SCH (09:30)
[2020-05-21 12:00] VITALS: BP 130/78
[2020-05-21 16:00] VITALS: BP 136/74
[2020-05-21 20:00] VITALS: BP 148/62
[2020-05-21] MEDS: ZOLPIDEM TARTRATE 5MG TABLET PO PRN (20:29)
[2020-05-22] VITALS: BP 127/75
[2020-05-22 04:00] VITALS: BP 136/80
[2020-05-22] MEDS: GABAPENTIN 300MG CAPSULE PO SCH ×3 (06:03→22:15)
[2020-05-22 08:00] VITALS: BP 133/74
[2020-05-22] MEDS: CELECOXIB 100MG CAPSULE PO SCH ×2 (09:04→17:47)
[2020-05-22] MEDS: HYDROXYCHLOROQUINE SULFATE 200MG TABLET PO SCH ×2 (09:04→17:47)
[2020-05-22] MEDS: HYDROCODONE/ACETAMINOPHEN 5/325MG TABLET PO PRN ×2 (09:05→22:25)
[2020-05-22] MEDS: CALCIUM ACETATE 667MG CAPSULE PO SCH ×3 (09:05→17:47)
[2020-05-22] MEDS: SODIUM HYPOCHLORITE 0.125% 473ML SOLUTION TOP SCH (09:05)
[2020-05-22 12:00] VITALS: BP 115/70
[2020-05-22 20:00] VITALS: BP 137/62
[2020-05-22 20:22] LABS: BASOPHILS % 0.8 % (0.0-2.0); HEMATOCRIT. 30.7 % (42.0-52.0); HEMOGLOBIN. 9.9 g/dL (14.0-18.0); LYMPHOCYTES % 22.4 % (20.0-50.0); MEAN CORPUSCULAR HEMOGLOBIN 29.2 pg (28.0-32.0); MEAN CORPUSCULAR VOLUME 90.3 fL (80.0-94.0); MEAN PLATELET VOLUME 8.2 fl (7.4-10.4); NEUTROPHILS % 63.8 % (40.0-76.0); PLATELET 455 x1000/uL (130-400)
[2020-05-22 20:26] LABS: CHLORIDE 107 mEq/L (98-107)
[2020-05-23] VITALS: BP 125/68
[2020-05-23] MEDS: DIPHENHYDRAMINE 25MG CAPSULE PO PRN ×2 (01:20→11:14)
[2020-05-23 04:00] VITALS: BP 134/80
[2020-05-23] MEDS: GABAPENTIN 300MG CAPSULE PO SCH ×3 (05:48→21:09)
[2020-05-23] MEDS: CALCIUM ACETATE 667MG CAPSULE PO SCH ×3 (05:48→16:38)
[2020-05-23 08:00] VITALS: BP 125/77
[2020-05-23] MEDS: CELECOXIB 100MG CAPSULE PO SCH ×2 (08:23→16:38)
[2020-05-23] MEDS: HYDROXYCHLOROQUINE SULFATE 200MG TABLET PO SCH ×2 (08:23→16:38)
[2020-05-23] MEDS: SODIUM HYPOCHLORITE 0.125% 473ML SOLUTION TOP SCH (08:24)
[2020-05-23] MEDS: HYDROCODONE/ACETAMINOPHEN 5/325MG TABLET PO PRN ×2 (08:24→21:10)
[2020-05-23 11:58] VITALS: BP 114/59
[2020-05-23 16:00] VITALS: BP 122/56
[2020-05-23 17:38] LABS: CHLORIDE 108 mEq/L (98-107)
[2020-05-23 17:39] LABS: BASOPHILS % 0.6 % (0.0-2.0); EOSINOPHILS % 1.3 % (0.0-5.0); HEMATOCRIT. 29.2 % (42.0-52.0); HEMOGLOBIN. 9.1 g/dL (14.0-18.0); LYMPHOCYTES % 23.2 % (20.0-50.0); MEAN CORPUSCULAR HEMOGLOBIN 28.4 pg (28.0-32.0); MEAN PLATELET VOLUME 8.2 fl (7.4-10.4); MONOCYTES % 12.5 % (2.0-8.0); NEUTROPHILS % 62.4 % (40.0-76.0); PLATELET 412 x1000/uL (130-400); RED BLOOD CELL COUNT 3.21 mill/uL (4.7-6.1); RED CELL DISTRIBUTION WIDTH 16.3 % (11.6-14.6)
[2020-05-23 20:00] VITALS: BP 125/66
[2020-05-23] MEDS: ZOLPIDEM TARTRATE 5MG TABLET PO PRN (22:35)
[2020-05-24] VITALS: BP 111/64
[2020-05-24 04:00] VITALS: BP 119/71
[2020-05-24] MEDS: GABAPENTIN 300MG CAPSULE PO SCH ×3 (05:51→21:56)
[2020-05-24 08:20] VITALS: BP 129/69
[2020-05-24] MEDS: CALCIUM ACETATE 667MG CAPSULE PO SCH (08:32)
[2020-05-24] MEDS: HYDROXYCHLOROQUINE SULFATE 200MG TABLET PO SCH (08:32)
[2020-05-24] MEDS: CELECOXIB 100MG CAPSULE PO SCH (08:32)
[2020-05-24] MEDS: SODIUM HYPOCHLORITE 0.125% 473ML SOLUTION TOP SCH (08:33)
[2020-05-24] MEDS ORDERED: SODIUM POLYSTYRENE SULFONATE 15 G/60 ML BOT PO NR (11:00)
[2020-05-24 16:08] LABS: BASOPHILS % 0.7 % (0.0-2.0); EOSINOPHILS % 1.3 % (0.0-5.0); HEMOGLOBIN. 9.4 g/dL (14.0-18.0); LYMPHOCYTES % 21.3 % (20.0-50.0); MEAN CORPUSCULAR HEMOGLOBIN 28.4 pg (28.0-32.0); MEAN CORPUSCULAR VOLUME 90.5 fL (80.0-94.0); MEAN PLATELET VOLUME 8.7 fl (7.4-10.4); MONOCYTES % 11.4 % (2.0-8.0); NEUTROPHILS % 65.3 % (40.0-76.0); PLATELET 406 x1000/uL (130-400); RED BLOOD CELL COUNT 3.31 mill/uL (4.7-6.1); RED CELL DISTRIBUTION WIDTH 15.9 % (11.6-14.6)
[2020-05-24 16:14] LABS: CHLORIDE 107 mEq/L (98-107)
[2020-05-24 20:00] VITALS: BP 129/76
[2020-05-24] MEDS: ZOLPIDEM TARTRATE 5MG TABLET PO PRN (21:55)
[2020-05-24] MEDS: HYDROCODONE/ACETAMINOPHEN 5/325MG TABLET PO PRN ×2 (23:06→23:10)
[2020-05-25] VITALS: BP 110/54
[2020-05-25 04:00] VITALS: BP 136/83
[2020-05-25] MEDS: HYDROCODONE/ACETAMINOPHEN 5/325MG TABLET PO PRN ×2 (06:38→17:52)
[2020-05-25] MEDS: GABAPENTIN 300MG CAPSULE PO SCH ×3 (06:38→21:14)
[2020-05-25 08:30] VITALS: BP 137/80
[2020-05-25] MEDS: DIPHENHYDRAMINE 25MG CAPSULE PO PRN (13:50)
[2020-05-25 16:00] VITALS: BP 124/71
[2020-05-25] MEDS: HYDROXYCHLOROQUINE SULFATE 200MG TABLET PO SCH (17:52)
[2020-05-25] MEDS: SODIUM HYPOCHLORITE 0.125% 473ML SOLUTION TOP SCH (17:54)
[2020-05-25 19:48] LABS: BASOPHILS % 0.6 % (0.0-2.0); EOSINOPHILS % 1.1 % (0.0-5.0); HEMATOCRIT. 28.9 % (42.0-52.0); HEMOGLOBIN. 9.3 g/dL (14.0-18.0); LYMPHOCYTES % 20.1 % (20.0-50.0); MEAN CORPUSCULAR HEMOGLOBIN 29.2 pg (28.0-32.0); MEAN CORPUSCULAR VOLUME 90.6 fL (80.0-94.0); MEAN PLATELET VOLUME 8.5 fl (7.4-10.4); MONOCYTES % 8.9 % (2.0-8.0); NEUTROPHILS % 69.3 % (40.0-76.0); PLATELET 365 x1000/uL (130-400); RED BLOOD CELL COUNT 3.19 mill/uL (4.7-6.1); RED CELL DISTRIBUTION WIDTH 16.2 % (11.6-14.6)
[2020-05-25 20:00] VITALS: BP 118/70
[2020-05-25] MEDS: ZOLPIDEM TARTRATE 5MG TABLET PO PRN (21:14)
[2020-05-26] VITALS: BP 140/75
[2020-05-26 04:00] VITALS: BP 107/67
[2020-05-26] MEDS: GABAPENTIN 300MG CAPSULE PO SCH ×3 (05:00→21:00)
[2020-05-26] MEDS: HYDROCODONE/ACETAMINOPHEN 5/325MG TABLET PO PRN ×3 (05:04→18:10)
[2020-05-26 08:00] VITALS: BP 128/74
[2020-05-26] MEDS: HYDROXYCHLOROQUINE SULFATE 200MG TABLET PO SCH ×2 (10:57→18:09)
[2020-05-26] MEDS: SODIUM HYPOCHLORITE 0.125% 473ML SOLUTION TOP SCH (10:57)
[2020-05-26] MEDS: SODIUM CHLORIDE 0.9% 1,000 ML IV SCH ×2 (11:06→18:11)
[2020-05-26 12:00] VITALS: BP 117/65
[2020-05-26 16:02] VITALS: BP 113/58
[2020-05-26 20:00] VITALS: BP 102/67
[2020-05-26] MEDS: ZOLPIDEM TARTRATE 5MG TABLET PO PRN (21:00)
[2020-05-27] VITALS: BP 144/86
[2020-05-27] MEDS: HYDROCODONE/ACETAMINOPHEN 5/325MG TABLET PO PRN ×3 (00:35→20:58)
[2020-05-27 04:00] VITALS: BP 135/83
[2020-05-27] MEDS: DIPHENHYDRAMINE 25MG CAPSULE PO PRN ×2 (05:31→16:52)
[2020-05-27] MEDS: GABAPENTIN 300MG CAPSULE PO SCH ×3 (05:31→20:58)
[2020-05-27] MEDS: SODIUM CHLORIDE 0.9% 1,000 ML IV SCH ×2 (05:38→15:29)
[2020-05-27 07:59] VITALS: BP 126/72
[2020-05-27 08:05] LABS: BASOPHILS % 0.9 % (0.0-2.0); EOSINOPHILS % 1.6 % (0.0-5.0); HEMATOCRIT. 29.3 % (42.0-52.0); HEMOGLOBIN. 9.3 g/dL (14.0-18.0); LYMPHOCYTES % 24.7 % (20.0-50.0); MEAN CORPUSCULAR HEMOGLOBIN 28.6 pg (28.0-32.0); MEAN CORPUSCULAR VOLUME 90.7 fL (80.0-94.0); MEAN PLATELET VOLUME 8.9 fl (7.4-10.4); MONOCYTES % 12.7 % (2.0-8.0); NEUTROPHILS % 60.1 % (40.0-76.0); PLATELET 314 x1000/uL (130-400); RED BLOOD CELL COUNT 3.23 mill/uL (4.7-6.1); RED CELL DISTRIBUTION WIDTH 16.2 % (11.6-14.6)
[2020-05-27 09:23] LABS: CHLORIDE 110 mEq/L (98-107)
[2020-05-27] MEDS: HYDROXYCHLOROQUINE SULFATE 200MG TABLET PO SCH ×2 (09:30→16:52)
[2020-05-27 09:31] LABS: PHOSPHORUS 4.4 mg/dL (2.5-4.9)
[2020-05-27] MEDS: SODIUM HYPOCHLORITE 0.125% 473ML SOLUTION TOP SCH (09:31)
[2020-05-27 16:00] VITALS: BP 139/56
[2020-05-27] MEDS: ACETAMINOPHEN 325MG TABLET PO PRN (16:52)
[2020-05-27 20:55] VITALS: BP 132/78
[2020-05-27] MEDS: ZOLPIDEM TARTRATE 5MG TABLET PO PRN (23:34)
[2020-05-28 04:00] VITALS: BP 150/67
[2020-05-28] MEDS: GABAPENTIN 300MG CAPSULE PO SCH ×3 (05:50→20:34)
[2020-05-28 08:00] VITALS: BP 105/49
[2020-05-28] MEDS: SODIUM HYPOCHLORITE 0.125% 473ML SOLUTION TOP SCH (08:01)
[2020-05-28] MEDS: HYDROXYCHLOROQUINE SULFATE 200MG TABLET PO SCH ×2 (08:02→16:46)
[2020-05-28] MEDS: HYDROCODONE/ACETAMINOPHEN 5/325MG TABLET PO PRN ×2 (08:03→20:36)
[2020-05-28 08:49] LABS: CHLORIDE 110 mEq/L (98-107)
[2020-05-28 08:55] LABS: BASOPHILS % 0.5 % (0.0-2.0); EOSINOPHILS % 1.9 % (0.0-5.0); HEMATOCRIT. 33.2 % (42.0-52.0); HEMOGLOBIN. 10.4 g/dL (14.0-18.0); LYMPHOCYTES % 25.9 % (20.0-50.0); MEAN CORPUSCULAR HEMOGLOBIN 28.7 pg (28.0-32.0); MEAN CORPUSCULAR VOLUME 91.5 fL (80.0-94.0); MEAN PLATELET VOLUME 9.2 fl (7.4-10.4); MONOCYTES % 9.7 % (2.0-8.0); PLATELET 283 x1000/uL (130-400); RED BLOOD CELL COUNT 3.63 mill/uL (4.7-6.1); RED CELL DISTRIBUTION WIDTH 16.5 % (11.6-14.6)
[2020-05-28 12:00] VITALS: BP 119/66
[2020-05-28 16:00] VITALS: BP 131/70
[2020-05-28 20:00] VITALS: BP 125/86
[2020-05-28] MEDS: ZOLPIDEM TARTRATE 5MG TABLET PO PRN (22:05)
[2020-05-29] VITALS: BP_SYST 128; BP_SYST 135; BP_DIAS 70; BP_DIAS 74
[2020-05-29 04:00] VITALS: BP 129/83
[2020-05-29] MEDS: GABAPENTIN 300MG CAPSULE PO SCH ×3 (05:36→20:44)
[2020-05-29] MEDS: HYDROCODONE/ACETAMINOPHEN 5/325MG TABLET PO PRN ×2 (05:36→20:49)
[2020-05-29 07:51] VITALS: BP 130/81
[2020-05-29] MEDS: HYDROXYCHLOROQUINE SULFATE 200MG TABLET PO SCH ×2 (09:15→17:21)
[2020-05-29] MEDS: SODIUM HYPOCHLORITE 0.125% 473ML SOLUTION TOP SCH (09:15)
[2020-05-29] MEDS ORDERED: SODIUM POLYSTYRENE SULFONATE 15 G/60 ML BOT PO NR (10:30)
[2020-05-29 11:02] LABS: CHLORIDE 108 mEq/L (98-107)
[2020-05-29 11:10] LABS: BASOPHILS % 0.8 % (0.0-2.0); EOSINOPHILS % 2.1 % (0.0-5.0); HEMATOCRIT. 28.9 % (42.0-52.0); HEMOGLOBIN. 9.1 g/dL (14.0-18.0); LYMPHOCYTES % 23.9 % (20.0-50.0); MEAN CORPUSCULAR HEMOGLOBIN 28.2 pg (28.0-32.0); MEAN CORPUSCULAR VOLUME 89.5 fL (80.0-94.0); MEAN PLATELET VOLUME 8.5 fl (7.4-10.4); MONOCYTES % 8.9 % (2.0-8.0); NEUTROPHILS % 64.3 % (40.0-76.0); PLATELET 282 x1000/uL (130-400); RED BLOOD CELL COUNT 3.24 mill/uL (4.7-6.1); RED CELL DISTRIBUTION WIDTH 16.2 % (11.6-14.6)
[2020-05-29 20:00] VITALS: BP 121/49
[2020-05-29] MEDS: ZOLPIDEM TARTRATE 5MG TABLET PO PRN (23:03)
[2020-05-30] VITALS: BP 122/80
[2020-05-30 04:00] VITALS: BP 132/57
[2020-05-30] MEDS: GABAPENTIN 300MG CAPSULE PO SCH ×3 (06:13→21:37)
[2020-05-30] MEDS: HYDROCODONE/ACETAMINOPHEN 5/325MG TABLET PO PRN ×3 (06:16→21:40)
[2020-05-30 08:00] VITALS: BP 119/70
[2020-05-30] MEDS: HYDROXYCHLOROQUINE SULFATE 200MG TABLET PO SCH ×2 (08:38→16:11)
[2020-05-30 08:55] LABS: BASOPHILS % 0.6 % (0.0-2.0); EOSINOPHILS % 2.5 % (0.0-5.0); HEMATOCRIT. 30.5 % (42.0-52.0); HEMOGLOBIN. 9.8 g/dL (14.0-18.0); LYMPHOCYTES % 30.9 % (20.0-50.0); MEAN CORPUSCULAR HEMOGLOBIN 28.7 pg (28.0-32.0); MEAN CORPUSCULAR VOLUME 89.5 fL (80.0-94.0); MEAN PLATELET VOLUME 8.4 fl (7.4-10.4); MONOCYTES % 8.6 % (2.0-8.0); NEUTROPHILS % 57.4 % (40.0-76.0); PLATELET 269 x1000/uL (130-400); RED BLOOD CELL COUNT 3.41 mill/uL (4.7-6.1); RED CELL DISTRIBUTION WIDTH 16.1 % (11.6-14.6)
[2020-05-30 09:03] LABS: CHLORIDE 109 mEq/L (98-107)
[2020-05-30] MEDS: ENOXAPARIN 40MG/0.4ML SYR SUBCUT SCH (17:45)
[2020-05-30 20:00] VITALS: BP 128/69
[2020-05-30] MEDS: ZOLPIDEM TARTRATE 5MG TABLET PO PRN (22:41)
[2020-05-31] VITALS: BP 103/66
[2020-05-31 04:00] VITALS: BP 130/82
[2020-05-31] MEDS: GABAPENTIN 300MG CAPSULE PO SCH ×3 (06:20→21:26)
[2020-05-31] MEDS: HYDROCODONE/ACETAMINOPHEN 5/325MG TABLET PO PRN ×3 (06:23→20:12)
[2020-05-31 08:00] VITALS: BP 130/56
[2020-05-31] MEDS: HYDROXYCHLOROQUINE SULFATE 200MG TABLET PO SCH ×2 (08:25→18:07)
[2020-05-31 12:00] VITALS: BP 142/78
[2020-05-31 16:00] VITALS: BP 120/66
[2020-05-31] MEDS: ENOXAPARIN 40MG/0.4ML SYR SUBCUT SCH (18:07)
[2020-05-31 20:00] VITALS: BP 126/76
[2020-05-31] MEDS: ZOLPIDEM TARTRATE 5MG TABLET PO PRN (21:27)
[2020-06-01] VITALS: BP 122/86
[2020-06-01 04:00] VITALS: BP 124/88
[2020-06-01] MEDS: GABAPENTIN 300MG CAPSULE PO SCH ×3 (05:34→21:43)
[2020-06-01] MEDS: HYDROCODONE/ACETAMINOPHEN 5/325MG TABLET PO PRN ×2 (05:53→22:39)
[2020-06-01 08:09] VITALS: BP 132/75
[2020-06-01] MEDS: HYDROXYCHLOROQUINE SULFATE 200MG TABLET PO SCH ×2 (09:28→17:33)
[2020-06-01 12:00] VITALS: BP 125/88
[2020-06-01 16:00] VITALS: BP 122/85
[2020-06-01] MEDS: ENOXAPARIN 40MG/0.4ML SYR SUBCUT SCH (17:34)
[2020-06-01 20:00] VITALS: BP 122/66
[2020-06-01] MEDS: ZOLPIDEM TARTRATE 5MG TABLET PO PRN (22:39)
[2020-06-02] VITALS: BP 123/69
[2020-06-02] MEDS: HYDROCODONE/ACETAMINOPHEN 5/325MG TABLET PO PRN (06:32)
[2020-06-02] MEDS: GABAPENTIN 300MG CAPSULE PO SCH ×2 (06:33→14:01)
[2020-06-02 08:00] VITALS: BP 110/59
[2020-06-02] MEDS: HYDROXYCHLOROQUINE SULFATE 200MG TABLET PO SCH ×2 (09:05→17:20)
[2020-06-02] MEDS: ACETAMINOPHEN 325MG TABLET PO PRN (09:05)
[2020-06-02 11:41] LABS: BASOPHILS % 0.6 % (0.0-2.0); HEMATOCRIT. 29.4 % (42.0-52.0); HEMOGLOBIN. 9.4 g/dL (14.0-18.0); LYMPHOCYTES % 30.2 % (20.0-50.0); MEAN CORPUSCULAR HEMOGLOBIN 28.7 pg (28.0-32.0); MEAN CORPUSCULAR VOLUME 90.1 fL (80.0-94.0); MONOCYTES % 9.7 % (2.0-8.0); NEUTROPHILS % 55.5 % (40.0-76.0); RED BLOOD CELL COUNT 3.26 mill/uL (4.7-6.1); RED CELL DISTRIBUTION WIDTH 16.3 % (11.6-14.6)
[2020-06-02 12:13] LABS: CHLORIDE 105 mEq/L (98-107)
[2020-06-02 12:41] LABS: MEAN PLATELET VOLUME 9.4 fl (7.4-10.4)
[2020-06-02 12:42] LABS: PLATELET 223 x1000/uL (130-400)
[2020-06-02 15:13] VITALS: BP 110/59
[2020-06-02] MEDS: ENOXAPARIN 40MG/0.4ML SYR SUBCUT SCH (17:20)
== END 2020-06-02 18:20 | DRG 710 ==
LOC: ER 11:53 → MICUSO 04-27 02:23 → EDBEDREQDT 04-27 02:25 → EDBEDREQSVC 04-27 02:25 → EDBEDREQ 04-27 02:25 → EDBEDREQTM 04-27 02:25 → 6WST 04-28 05:27 → 4WST 05-07 11:31
PROVIDERS: ADMIT Internal Medicine; ATTEND Internal Medicine
PROC: 30233N1 Transfusion of Nonautologous Red Blood Cells into Peripheral Vein, Percutaneous Approach (ICD-10-PCS; 2020-04-27)
PROC: 5A1D70Z Performance of Urinary Filtration, Intermittent, Less than 6 Hours Per Day (ICD-10-PCS; 2020-05-01)
PROC: 02HV33Z Insertion of Infusion Device into Superior Vena Cava, Percutaneous Approach (ICD-10-PCS; 2020-05-02)
PROC: B518ZZA Fluoroscopy of Superior Vena Cava, Guidance (ICD-10-PCS; 2020-05-02)
PROC: B548ZZA Ultrasonography of Superior Vena Cava, Guidance (ICD-10-PCS; 2020-05-02)
PROC: 5A1D70Z Performance of Urinary Filtration, Intermittent, Less than 6 Hours Per Day (ICD-10-PCS; 2020-05-03)
PROC: 0KBN0ZZ Excision of Right Hip Muscle, Open Approach (ICD-10-PCS; principal; 2020-05-04)
PROC: 0KBP0ZZ Excision of Left Hip Muscle, Open Approach (ICD-10-PCS; 2020-05-04)
PROC: 5A1D70Z Performance of Urinary Filtration, Intermittent, Less than 6 Hours Per Day (ICD-10-PCS; 2020-05-05)
PROC: 5A1D70Z Performance of Urinary Filtration, Intermittent, Less than 6 Hours Per Day (ICD-10-PCS; 2020-05-07)
PROC: 0S9C3ZZ Drainage of Right Knee Joint, Percutaneous Approach (ICD-10-PCS; 2020-05-09)
PROC: 0R9J3ZZ Drainage of Right Shoulder Joint, Percutaneous Approach (ICD-10-PCS; 2020-05-09)
PROC: 0S9C3ZZ Drainage of Right Knee Joint, Percutaneous Approach (ICD-10-PCS; 2020-05-11)
PROC: 0HBNXZZ Excision of Left Foot Skin, External Approach (ICD-10-PCS; 2020-05-22)
PROC: 0HBMXZZ Excision of Right Foot Skin, External Approach (ICD-10-PCS; 2020-05-22)
DX: A41.51 Sepsis due to Escherichia coli [E. coli] (principal); R65.20 Severe sepsis without septic shock; N49.3 Fournier gangrene; N17.0 Acute kidney failure with tubular necrosis; E43 Unspecified severe protein-calorie malnutrition; F14.10 Cocaine abuse, uncomplicated; G82.20 Paraplegia, unspecified; I48.91 Unspecified atrial fibrillation; D64.9 Anemia, unspecified; E87.1 Hypo-osmolality and hyponatremia; E87.5 Hyperkalemia; F12.90 Cannabis use, unspecified, uncomplicated; E87.8 Other disorders of electrolyte and fluid balance, not elsewhere classified; E11.22 Type 2 diabetes mellitus with diabetic chronic kidney disease; R74.01 Elevation of levels of liver transaminase levels; E87.70 Fluid overload, unspecified; L85.3 Xerosis cutis; N49.2 Inflammatory disorders of scrotum; R04.0 Epistaxis; K76.9 Liver disease, unspecified; R32 Unspecified urinary incontinence; K64.4 Residual hemorrhoidal skin tags; M15.4 Erosive (osteo)arthritis; M48.02 Spinal stenosis, cervical region; M50.30 Other cervical disc degeneration, unspecified cervical region; M51.34 Other intervertebral disc degeneration, thoracic region; M51.36 Other intervertebral disc degeneration, lumbar region; M77.9 Enthesopathy, unspecified; M00.9 Pyogenic arthritis, unspecified; E11.52 Type 2 diabetes mellitus with diabetic peripheral angiopathy with gangrene; S90.425A Blister (nonthermal), left lesser toe(s), initial encounter; X58.XXXA Exposure to other specified factors, initial encounter; L89.154 Pressure ulcer of sacral region, stage 4; N18.9 Chronic kidney disease, unspecified; F15.10 Other stimulant abuse, uncomplicated; M25.40 Effusion, unspecified joint; L85.9 Epidermal thickening, unspecified; N13.6 Pyonephrosis; I12.9 Hypertensive chronic kidney disease with stage 1 through stage 4 chronic kidney disease, or unspecified chronic kidney disease; Z20.822 Contact with and (suspected) exposure to COVID-19; W34.00XA Accidental discharge from unspecified firearms or gun, initial encounter; Z99.2 Dependence on renal dialysis; Z79.891 Long term (current) use of opiate analgesic; Z79.899 Other long term (current) drug therapy; Z59.0 Homelessness; Z68.32 Body mass index [BMI] 32.0-32.9, adult; Y93.89 Activity, other specified; Y92.89 Other specified places as the place of occurrence of the external cause; Y99.8 Other external cause status; Z99.3 Dependence on wheelchair; B96.1 Klebsiella pneumoniae [K. pneumoniae] as the cause of diseases classified elsewhere
CPT/HCPCS: 36415; 36600; 71045; 72128; 73560; 73630; 74176; 76705; 76770; 76870; 76937; 77001; 80048; 80053; 80076; 80202; 80305; 81003; 82085; 82164; 82248; 82270; 82375; 82550; 82607; 82728; 82746; 82805; 82955; 82962; 83036; 83520; 83540; 83550; 83605; 83735; 83880; 84100; 84132; 84145; 84484; 84550; 85014; 85018; 85025; 85041; 85384; 86038; 86160; 86200; 86225; 86235; 86256; 86431; 86705; 86706; 86709; 86803; 86850; 86880; 86900; 86920; 87070; 87077; 87186; 87340; 87426; 93005; 93923; 93970; 93976; 97022; 97162; 99285; A6261; C1752; C1769; J0696; J1030; J1644; J1650; J1815; J1956; J2270; J2405; J2543; J3370; J3490; J7030; J7040; J7060; L8514; P9016; Q0163; A4315; A5200

== ENCOUNTER 2023-01-31 11:23 | Emergency (ER) | payer MEDICAID ==
[~2023-01-31] VITALS: Ht 170.2 cm; Wt 90.7 kg
[~2023-01-31 11:23] MED LIST changes: +DIAZ-570 PO; -DIAZ10TA PO; +LEVO-65 MT
[2023-01-31 11:33] VITALS: O2SAT 98
[2023-01-31 13:23] VITALS: BP 136/74; PULSE 100; RESP 16; TEMP 98.3
== END 2023-01-31 13:25 | disposition home or self-care (01) ==
LOC: ER 11:23
DX: R33.9 Retention of urine, unspecified (principal); E11.9 Type 2 diabetes mellitus without complications; I10 Essential (primary) hypertension; I48.91 Unspecified atrial fibrillation; Z98.890 Other specified postprocedural states; Z88.6 Allergy status to analgesic agent
CPT/HCPCS: 99281; Z7610 ×2